=== PATIENT | female | born 1990 | race Caucasian/White ===

== ENCOUNTER 2019-04-01 00:19 | Emergency (ER) | payer BC, MEDICAID ==
[2016-03-27 14:44] VITALS: Wt 68.0 kg
[~2019-04-01 00:19] MED LIST: ACET-1718 PO; DOCU-416 PO; IBUP800T37 PO; KET10 PO; PER PO
--- NOTE | 2019-04-01 00:20 | ER Report ---
History and Physical Time Seen By MD: 00:16 HPI/ROS CHIEF COMPLAINT: Intermediate clearance HISTORY OF PRESENT ILLNESS: 28-year-old female brought in by police for fci clearance. Patient voices no complaints. Patient has slurred speech consistent with alcohol intoxication. She denies other drug use. She denies significant past medical history. REVIEW OF SYSTEMS: Respiratory: No cough, no dyspnea. Cardiovascular: No chest pain, no palpitations. Gastrointestinal: No vomiting, no abdominal pain. Musculoskeletal: No back pain. Allergies: Coded Allergies: No Known Drug Allergies (Verified , 04/01/19) Home Meds Active Scripts Docusate Sodium (COLACE) 100 Mg Capsule, 100 MG PO BID PRN for pain, #60 CAPSULE 1 Refill Prov:PETTY WARREN MD 03/28/16 Ibuprofen (IBUPROFEN) 800 Mg Tablet, 1 TAB PO Q8H PRN for pain, #30 TAB 0 Refills TAKE WITH FOOD EVERY 8 HOURS Prov:PETTY WARREN MD 03/28/16 Acetaminophen With Codeine # 3 (ACETAMINOPHEN-COD #3 TABLET) 1 Each Tablet, 1-2 EACH PO Q4H PRN for pain, #40 TAB 0 Refills Take 1-2 tablets as needed for pain no closer than every 4 hours. Prov:PETTY WARREN MD 03/28/16 Reviewed Nurses Notes: Yes Old Medical Records Reviewed: Yes Hx Smoking: Yes Smoking Status: Former Smoker Exposure to Second Hand Smoke?: No Hx Substance Use Disorder: No Hx Alcohol Use: No Constitutional Vital Sign - Last 24 Hours 04/01/19 00:21 Temp 97.5 Pulse 106 Resp 16 B/P (MAP) 128/99 Pulse Ox 92 O2 Delivery Room Air Physical Exam General Appearance: The patient is alert, has no immediate need for airway protection and no current signs of toxicity. Palpation of the head and neck reveal no tenderness or trauma, vital signs are stable, afebrile, pulse ox normal HEENT: Pupils equal and round no injection. TMs normal, oropharynx without redness or exudate Respiratory: Chest is non tender, lungs are clear to auscultation. Cardiac: regular rate and rhythm Gastrointestinal: Abdomen is soft and non tender, no masses, bowel sounds normal. Musculoskeletal: Neck: Neck is supple and non tender. Extremities have full range of motion and are non tender. Skin: No rashes or lesions. DIFFERENTIAL DIAGNOSIS: After history and physical exam differential diagnosis was considered for alcohol intoxication, polysubstance abuse, fci clearance Medical Decision Making ED Course/Re-evaluation ED Course Patient was admitted to an examination room, H&P was done. The differential diagnoses was considered. On clinical examination. Patient has no findings. Patient voices no complaints or injuries. Vital signs are stable. Patient's medically cleared for fci admission. Decision to Disposition Date: Apr 01, 2019 Decision to Disposition Time: 00:18 Depart Departure Latest Vital Signs Vital Signs Date Time Temp Pulse Resp B/P (MAP) Pulse Ox O2 Delivery O2 Flow Rate FiO2 04/01/19 00:21 97.5 106 16 128/99 92 Room Air Impression: Primary Impression: Medical clearance for incarceration Additional Impression: Alcohol intoxication Condition: Improved Disposition: HOME OR SELF-CARE Referrals: MAYCO GUTIERREZ MD (PCP) Patient Instructions: Alcohol Intoxication (ED) Additional Instructions: Medical cleared for fci admission Problem Qualifiers Additional Impression: Alcohol intoxication Complication of substance-induced condition: uncomplicated Qualified Codes: F10.920 - Alcohol use, unspecified with intoxication, uncomplicated PAT TERRELL DO Apr 01, 2019 00:20
[2019-04-01 00:21] VITALS: BP 128/99
== END 2019-04-01 00:25 | disposition home or self-care (01) ==
LOC: ER 00:24
DX: F10.920 Alcohol use, unspecified with intoxication, uncomplicated (principal)
CPT/HCPCS: 99281